=== PATIENT | female | born 1955 | race Native Hawaiian/Other Pacific Islander ===

== ENCOUNTER 2021-01-10 13:59 | Emergency (ER) | payer OTHER ==
[~2021-01-10] VITALS: Ht 165.1 cm; Wt 74.8 kg
[~2021-01-10 13:59] MED LIST: ALPR0.2566 PO; AMBIEN5 MG PO; CLON1TAB18 PO; CLONIDINE0.1 MG PO; DICL1GEL2 TOP; FIORICET 50-3001 CAP PO; GABA400C2 PO; LAMISIL250 MG PO; LANTUS100 MG/ML SC; METOCLOPRAM10 MG PO; METOCLOPRAM5 MG PO; MOBIC15 MG PO; PREG75CA PO; ROPINIROLE1 MG PO; TOPAMAX50 MG PO; ZOFRAN8 MG PO
[2021-01-10 14:08] VITALS: TEMP 98.2
[2021-01-10 17:45] VITALS: BP 162/92
== END 2021-01-10 17:45 | disposition home or self-care (01) ==
LOC: ED 13:59
PROC: 2W3LX1Z Immobilization of Right Lower Extremity using Splint (ICD-10-PCS; principal; 2021-01-10)
PROC: 2W3RX1Z Immobilization of Left Lower Leg using Splint (ICD-10-PCS; 2021-01-10)
DX: S80.02XA Contusion of left knee, initial encounter (principal); S80.01XA Contusion of right knee, initial encounter; S80.212A Abrasion, left knee, initial encounter; S80.211A Abrasion, right knee, initial encounter; S93.492A Sprain of other ligament of left ankle, initial encounter; W10.8XXA Fall (on) (from) other stairs and steps, initial encounter; Y92.89 Other specified places as the place of occurrence of the external cause
CPT/HCPCS: 99283; J1885